=== PATIENT | female | born 1975 | race Caucasian/White ===

== ENCOUNTER → 2017-03-18 15:48 | Outpatient (CLI) | payer BC ==
[2014-12-09 14:41] VITALS: BMI 35.8
[~2017-03-18 15:48] MED LIST: NEURONTIN 300300 MG PO
== END | disposition home or self-care (01) ==
LOC: D.MRI 15:48
DX: M25.562 Pain in left knee (principal)

== ENCOUNTER → 2017-09-03 09:59 | Outpatient (CLI) | payer BC ==
[2014-12-09 14:41] VITALS: BMI 35.8
[~2017-09-03 09:59] MED LIST changes: +BUTALB-APAP-CA1 EACH PO; +DYAZIDE 37.5/251 CAP; +FERROUS SULFAT140 MG PO; +GABAPENTIN100 MG PO; +K-DUR20 MEQ PO; +NORCO 7.5/325 T1 TA1 PO; +PROTONIX40 MG PO; +VYVANSE70 MG PO; +XANAX0.5 MG PO
[2017-09-03 10:43] LABS: BASOPHILS 0.5 % (0-2); EOSINOPHILS 1.8 % (0-7); HEMATOCRIT 32.7 % (36.0-48.0); HEMOGLOBIN 9.9 g/dL (12-16); IMMATURE GRANULOCYTES 0.3 % (0-5); LYMPHOCYTES 26.7 % (15-50); MCH 24.8 pg (26.0-34.0); MCHC 30.3 g/dL (31.0-37.0); MEAN PLATELET VOLUME 11.5 fL (7.4-10.4); MONOCYTES 7.6 % (2-11); NEUTROPHILS 63.1 % (40-80); PLATELET COUNT 239 10x3/uL (130-400); RBC 3.99 10x6/uL (4.00-5.40); WBC 6.1 10x3/uL (4.8-10.8)
[2017-09-03 10:59] LABS: ANION GAP 15.2 mmol/L (8-16); CALCIUM 8.7 mg/dL (8.5-10.1); CARBON DIOXIDE 22.7 mmol/L (21.0-32.0); CREATININE - SERUM 0.9 mg/dL (0.6-1.3); POTASSIUM - SERUM 3.9 mmol/L (3.5-5.1)
[2017-09-03 11:24] LABS: INR 0.98 (0.85-1.17); PROTIME 12.6 SECONDS (11.6-15.0)
[2017-09-05 18:09] LABS: FOLATE (FOLIC ACID) - SERUM QNS ng/mL (())
[2017-09-11 09:17] LABS: FOLATE (FOLIC ACID) - SERUM 5.5 ng/mL (>3.0)
== END | disposition home or self-care (01) ==
LOC: D.LAB 09:59
PROVIDERS: Obstetrics & Gynecology
DX: D64.9 Anemia, unspecified (principal)

== ENCOUNTER 2017-09-16 07:24 | Day surgery (SDC) | payer BC ==
[~2017-09-16] VITALS: Ht 165.1 cm; Wt 94.3 kg
--- NOTE | ~2017-09-16 | OP ---
PATIENT NAME: ZACHARIAH GAXIOLA MEDICAL RECORD: [id number] :73 LOCATION:D.[facility]ERLY [facility] ADMISSION DATE: SURGEON: ZEFERINO GUAJARDO MD DATE OF OPERATION: 09/16/2017 PREOPERATIVE DIAGNOSIS: History of endometrial hyperplasia. POSTOPERATIVE DIAGNOSIS: History of endometrial hyperplasia. PROCEDURE: Hysteroscopy, D&C. SURGEON: Zeferino Guajardo MD ESTIMATED BLOOD LOSS: Minimal. INTRAVENOUS FLUIDS: Per anesthesia records. HYSTEROSCOPIC FLUID LOSS: Approximately 100 cc of 0.9 normal saline. FINDINGS: 1. Proliferative appearing endometrium. 2. Grossly normal cervix and external genitalia. SPECIMENS: Endometrial curettings. COMPLICATIONS: None apparent. PROCEDURE: The patient was taken to the operating room where general anesthesia was achieved without difficulty. The patient was then prepped and draped in normal sterile fashion in the dorsal lithotomy position in the [facility]. Following prep and drape, the bladder was drained of approximately 50 cc of clear yellow urine and a Graves speculum was placed into the vagina. At this point, the anterior lip of the cervix was grasped with a single tooth tenaculum. The patient was sounded to approximately 8 cm. Dilation was performed to approximately 6 mm and the hysteroscope was placed into the intrauterine cavity where survey of the cavity was performed. Following hysteroscopy, a #1 curette was used to curettage all 4 quadrants with minimal bleeding noted afterwards. The tenaculum was then removed as well as the speculum. The patient tolerated the procedure well and was transported to postanesthesia recovery stable without incident. TRANSINT:[id number] Voice Confirmation ID: [id number] DOCUMENT ID: [id number] ZEFERINO GUAJARDO MD at 1723 CC: [id number] DICTATION DATE: 09/28/17 0608 WEARING APPAREL PRESSER: 09/28/17 1113 [facility] 09/16/17 [place] [id number]
[2017-09-16 06:05] VITALS: BP 110/65; BMI 34.6
[2017-09-16 06:24] LABS: HCG URINE NEGATIVE (NEGATIVE)
[2017-09-16 06:29] VITALS: Ht 165.1 cm; Wt 94.3 kg
[2017-09-16 06:29] LABS: BASOPHILS 0.2 % (0-2); EOSINOPHILS 1.3 % (0-7); HEMATOCRIT 32.4 % (36.0-48.0); HEMOGLOBIN 10.1 g/dL (12-16); IMMATURE GRANULOCYTES 0.2 % (0-5); LYMPHOCYTES 26.4 % (15-50); MCH 26.7 pg (26.0-34.0); MCHC 31.2 g/dL (31.0-37.0); MCV 85.7 fL (80.0-100.0); MONOCYTES 6.3 % (2-11); NEUTROPHILS 65.6 % (40-80); RBC 3.78 10x6/uL (4.00-5.40); RDW 19.5 % (11.5-14.5); WBC 5.6 10x3/uL (4.8-10.8)
[2017-09-16 06:34] LABS: PLATELET COUNT 191 10x3/uL (130-400)
== END 2017-09-16 09:52 | disposition home or self-care (01) ==
LOC: D.OPS 07:24 → D.PAN 07:30 → D.OPS 07:30
PROVIDERS: Obstetrics & Gynecology
DX: N85.01 Benign endometrial hyperplasia (principal); F17.200 Nicotine dependence, unspecified, uncomplicated; K21.9 Gastro-esophageal reflux disease without esophagitis; R60.9 Edema, unspecified; F41.9 Anxiety disorder, unspecified; Z01.812 Encounter for preprocedural laboratory examination

== ENCOUNTER → 2017-09-26 15:51 | Outpatient (CLI) | payer BC ==
[2017-09-16 06:29] VITALS: BMI 34.6
[2017-09-26 16:20] LABS: HEMATOCRIT 34.6 % (36.0-48.0); HEMOGLOBIN 11.1 g/dL (12-16)
== END | disposition home or self-care (01) ==
LOC: D.LAB 15:51
PROVIDERS: Obstetrics & Gynecology
DX: Z01.419 Encounter for gynecological examination (general) (routine) without abnormal findings (principal)

== ENCOUNTER → 2017-11-07 14:27 | Outpatient (CLI) | payer BC ==
[2017-09-16 06:29] VITALS: BMI 34.6
[2017-11-07 15:30] LABS: BASOPHILS 0.5 % (0-2); EOSINOPHILS 1.4 % (0-7); HEMATOCRIT 37.8 % (36.0-48.0); HEMOGLOBIN 12.5 g/dL (12-16); IMMATURE GRANULOCYTES 0.2 % (0-5); LYMPHOCYTES 34.8 % (15-50); MCHC 33.1 g/dL (31.0-37.0); MCV 90.9 fL (80.0-100.0); MEAN PLATELET VOLUME 10.7 fL (7.4-10.4); MONOCYTES 7.2 % (2-11); NEUTROPHILS 55.9 % (40-80); PLATELET COUNT 242 10x3/uL (130-400); RBC 4.16 10x6/uL (4.00-5.40); RDW 16.3 % (11.5-14.5); WBC 5.8 10x3/uL (4.8-10.8)
[2017-11-07 15:53] LABS: % SATURATION 29 % (15-55); IRON 110 ug/dl (35-150); TOTAL IRON BIND CAPACITY 368 ug/dl (260-445); UNSAT IRON BIND CAPACITY 258 ug/dl (150-375)
[2017-11-07 16:06] LABS: ANION GAP 7.6 mmol/L (8-16); CALCIUM 8.7 mg/dL (8.5-10.1); CARBON DIOXIDE 32.1 mmol/L (21.0-32.0); CREATININE - SERUM 0.9 mg/dL (0.6-1.3); POTASSIUM - SERUM 3.7 mmol/L (3.5-5.1)
== END | disposition home or self-care (01) ==
LOC: D.LAB 14:27
PROVIDERS: Family Medicine
DX: D50.8 Other iron deficiency anemias (principal)

== ENCOUNTER 2017-12-11 08:00 | Outpatient (CLI) | payer BC ==
[~2017-12-11] VITALS: Ht 165.1 cm; Wt 98.4 kg
[~2017-12-11 08:00] MED LIST changes: -DYAZIDE 37.5/251 CAP; +DYAZIDE 37.5/251 CAP PO
[2017-12-12 06:46] VITALS: Ht 165.1 cm; Wt 98.4 kg
[2017-12-30] MEDS ORDERED: NORCO 7.5/325 T1 TA1 PO (09:33)
== END 2017-12-11 09:00 | disposition home or self-care (01) ==
LOC: D.MAMMO 08:00
DX: R92.8 Other abnormal and inconclusive findings on diagnostic imaging of breast (principal)

== ENCOUNTER 2017-12-12 05:30 | Inpatient (IN) | payer BC ==
[2017-12-11 14:05] LABS: BASOPHILS 0.3 % (0-2); EOSINOPHILS 1.1 % (0-7); HEMATOCRIT 37.6 % (36.0-48.0); HEMOGLOBIN 12.8 g/dL (12-16); IMMATURE GRANULOCYTES 0.1 % (0-5); LYMPHOCYTES 21.4 % (15-50); MCH 31.5 pg (26.0-34.0); MCV 92.6 fL (80.0-100.0); MONOCYTES 6.6 % (2-11); NEUTROPHILS 70.5 % (40-80); PLATELET COUNT 212 10x3/uL (130-400); RBC 4.06 10x6/uL (4.00-5.40); RDW 13.4 % (11.5-14.5); WBC 7.9 10x3/uL (4.8-10.8)
[2017-12-11 14:19] LABS: ANION GAP 9.8 mmol/L (8-16); CALCIUM 8.9 mg/dL (8.5-10.1); CARBON DIOXIDE 30.8 mmol/L (21.0-32.0); CREATININE - SERUM 0.9 mg/dL (0.6-1.3); POTASSIUM - SERUM 3.6 mmol/L (3.5-5.1)
[~2017-12-12] VITALS: Ht 165.1 cm; Wt 96.4 kg
[2017-12-12] VITALS (14 sets, daily range): BP systolic 99–134; BP diastolic 56–70; Ht 165.1 cm; Wt 96.4 kg
--- NOTE | ~2017-12-12 | OP ---
PATIENT NAME: ZACHARIAH GAXIOLA MEDICAL RECORD: [id number] :73 LOCATION:[facility] ADMISSION DATE:12/12/17 SURGEON: SEDRICK GUAJARDO MD DATE OF OPERATION: 12/12/2017 PREOPERATIVE DIAGNOSES: 1. Menorrhagia. 2. Pelvic pain. 3. Uterine fibroids. POSTOPERATIVE DIAGNOSES: 1. Menorrhagia. 2. Pelvic pain. 3. Uterine fibroids. PROCEDURES: Diagnostic laparoscopy, supracervical hysterectomy, and bilateral salpingectomy. SURGEON: Sedrick Guajardo MD ESTIMATED BLOOD LOSS: 300 cc. INTRAVENOUS FLUIDS: Per anesthesia records. ANESTHESIA: General endotracheal. COMPLICATIONS: None apparent. SPECIMENS: Uterus with partial cervix and bilateral fallopian tubes. FINDINGS: Large myomatous uterus, grossly normal appearing fallopian tubes and ovaries bilaterally. COMPLICATIONS: None apparent. DESCRIPTION OF THE PROCEDURE: The patient taken to the operating room where general anesthesia was achieved without difficulty. The patient was prepped and draped in normal sterile fashion in the dorsal lithotomy position in the [facility]. A Knight catheter had been placed and a sponge stick had been placed in the vagina for uterine elevation. At this point, a 5-mm incision was placed infraumbilically and the intraperitoneal space entered under the direct visualization of the laparoscope. Following entry into the intraperitoneal space, the introducer was removed and the patient was insufflated, opening pressure was found to be less than 10 mmHg. Survey of the abdomen and pelvis was performed. Due to the nature and size of the uterus, a laparoscopic approach would not be technically feasible, so at this point, the laparoscope was removed. The patient was desufflated and the trocar was removed. A Pfannenstiel skin incision was then made, extended downward to the underlying fat to the level of the fascia, which was then excised in the midline. Several areas of scar tissue were dissected away from the overlying skin. The fascia was then excised in midline and extended bilaterally using the Elena scissors. Superior and inferior aspects of the fascial incision were then grasped with Adi clamps times 2, tented upward, and sharply dissected from the underlying rectus muscle using the Bovie cautery and Elena scissors. The rectus muscle was OPERATIVE REPORT [id number] ZACHARIAH GAXIOLA identified in the midline and intraperitoneal entry was obtained by sharply entering the peritoneum with Metzenbaum scissors at the superior aspect of the incision. The peritoneal incision was then extended bilaterally using the Metzenbaum scissors. A Butte retractor was then placed into the incision. The small bowel was packed using 3 moist lap sponges. The uterus was grasped on its cornua with Adi clamps and tented upward through the incision. Extensive adhesive disease was also noted at the lower uterine segment/cervix and attention was then turned to the round ligaments, which were clamped, cut, and suture ligated using 0 Vicryl suture. A bladder flap was then created by excising the anterior leaf of the broad ligament across the lower uterine segment. Careful downward dissection of the bladder was performed. Skeletonization of the bilateral uterine vessels was obtained. A curved Brisa clamp was then placed across the uterine arteries. These were cut and then suture ligated using 0 Vicryl. Minimal bleeding was noted at that time. The cardinal ligaments were then clamped with straight Brisa clamps, cut, and suture ligated with 0 Vicryl and the uterus was amputated with a small portion of the cervix, a heavily invested in the bladder scarring was left behind. The endocervical canal was thoroughly cauterized. The cervical stump was oversewn using 0 Vicryl in an interrupted [id number] fashion with good hemostasis noted. Attention was then turned to the bilateral fallopian tubes, which were then carefully dissected away from the ovary and pelvic sidewall. The bilateral tubes and ovaries were identified and the fallopian tubes were dissected from the ovary and a curved Brisa clamp was placed across the mesosalpinx and not infundibulopelvic ligament and the fallopian tubes were then excised and the mesosalpinx oversewn with good hemostasis noted. The pelvis was then thoroughly irrigated and found to be hemostatic. The lap sponges were then removed. The counts were correct times 2 for needles, sponges, and instruments. The fascia was then repaired with 0 loop PDS and the skin repaired with davide. The patient tolerated procedure well, transferred to Postanesthesia Recovery stable without incident. TRANSINT:[id number] Voice Confirmation ID: [id number] DOCUMENT ID: [id number] SEDRICK GUAJARDO MD at 1304 CC: [id number] DICTATION DATE: 01/12/18 0650 PENCIL INSPECTOR: 01/12/18 1148 [place] 12/13/17 [facility] [address] [facility] [place] [id number]
--- NOTE | ~2017-12-12 | DS ---
PATIENT:ZACHARIAH GAXIOLA :73 MEDICAL RECORD: [id number] DISCHARGE SUMMARY ADMISSION DATE: 12/12/17 DISCHARGE DATE: 12/13/17 DATE OF ADMISSION: 12/12/2017 HOSPITAL COURSE: The patient with history of menorrhagia and fibroids refractory to medical therapy. The patient desires hysterectomy. The patient had had a remote history of simple hyperplasia where as repeat hysteroscopy revealed had resolved. PAST MEDICAL HISTORY: Significant for: 1. Lower extremity edema. 2. Chronic back pain. 3. Menorrhagia. 4. Gastroesophageal reflux disease. 5. Headaches. 6. Varicose veins. 7. Abdominal bloating. 8. The patient also reports history of anxiety. PAST SURGICAL HISTORY: Significant for cholecystectomy, and hysteroscopy, D&C. ALLERGIES: The patient reports no allergies. MEDICATIONS: Included Neurontin, Vyvanse, Xanax, iron, Protonix, Itmann, potassium, Fioricet and Dyazide. FAMILY HISTORY: The patient had a family history significant for a parent with diabetes and cancer, not otherwise specified. SOCIAL HISTORY: The patient reports a social history significant for being an everyday smoker. PHYSICAL EXAMINATION: VITAL SIGNS: On initial assessment, vital signs were found to be stable. The patient was normotensive and afebrile. LUNGS: Clear to auscultation. CARDIOVASCULAR: Regular rate and rhythm. ABDOMEN: Soft and appropriately tender. EXTREMITIES: Lower extremities were free of Homans sign. ASSESSMENT AND PLAN: 1. At that time, menorrhagia, uterine leiomyoma. 2. GERD. 3. Anxiety. 4. Lower extremity edema. Plan at that time for hysterectomy. Plan was to assess if laparoscopic supracervical hysterectomy could be performed. If unable, the patient was aware and wanted to proceed with total abdominal hysterectomy and bilateral salpingectomy. Risks and benefits were explained. The patient voiced understanding and consent. Operative report is as dictated. The patient did well overnight on postop day #0, tolerating IV Dilaudid and IV Toradol, clear DISCHARGE SUMMARY REPORT [id number] ZACHARIAH GAXIOLA liquid diet. Knight catheter was in place and draining freely with adequate urine output. Lower extremity with SCDs on and functioning appropriately. On the morning of postop day #1, status post diagnostic laparoscopy, supracervical hysterectomy and bilateral salpingectomy, the patient continued to do well. Vital signs remained stable. The patient was afebrile. Hemoglobin was stable. Incision was clean, dry and intact. The patient was advanced to p.o. pain meds and general diet. Knight was discontinued and ambulation was begun. The patient did exceptionally well on the morning of postop day #1 and desired discharge. The patient was discharged home with instructions to follow up for staple removal. TRANSINT:[id number] Voice Confirmation ID: [id number] DOCUMENT ID: [id number] ZEFERINO VALLE MD at 1304 CC: [id number] DICTATION DATE: 01/12/18 0654 CRYPTOANALYSIS TEACHER: 01/12/18 1628 [place] 12/13/17 [facility] [address] [place] [address]
[2017-12-12 20:38] LABS: BASOPHILS 0.1 % (0-2); EOSINOPHILS 0 % (0-7); HEMATOCRIT 32.7 % (36.0-48.0); IMMATURE GRANULOCYTES 0.3 % (0-5); LYMPHOCYTES 5.7 % (15-50); MCH 31.3 pg (26.0-34.0); MCHC 33.6 g/dL (31.0-37.0); MCV 92.9 fL (80.0-100.0); MONOCYTES 5.4 % (2-11); NEUTROPHILS 88.5 % (40-80); PLATELET COUNT 181 10x3/uL (130-400); RBC 3.52 10x6/uL (4.00-5.40); RDW 13.3 % (11.5-14.5)
[2017-12-12 20:56] LABS: WBC 10.8 10x3/uL (4.8-10.8)
[2017-12-12 20:59] LABS: ANION GAP 9.6 mmol/L (8-16); CALCIUM 7.9 mg/dL (8.5-10.1); CREATININE - SERUM 0.9 mg/dL (0.6-1.3); POTASSIUM - SERUM 3.6 mmol/L (3.5-5.1)
[2017-12-13 07:38] LABS: BASOPHILS 0.1 % (0-2); EOSINOPHILS 0.6 % (0-7); HEMATOCRIT 30.3 % (36.0-48.0); IMMATURE GRANULOCYTES 0.2 % (0-5); LYMPHOCYTES 17.5 % (15-50); MCH 31.1 pg (26.0-34.0); MCV 94.1 fL (80.0-100.0); MEAN PLATELET VOLUME 11.1 fL (7.4-10.4); MONOCYTES 9.3 % (2-11); NEUTROPHILS 72.3 % (40-80); PLATELET COUNT 169 10x3/uL (130-400); RBC 3.22 10x6/uL (4.00-5.40); RDW 13.6 % (11.5-14.5); WBC 8.7 10x3/uL (4.8-10.8)
[2017-12-13 07:44] VITALS: BP 103/50
[2017-12-13 08:12] LABS: ANION GAP 10.6 mmol/L (8-16); CALCIUM 7.6 mg/dL (8.5-10.1); CARBON DIOXIDE 28.6 mmol/L (21.0-32.0); CREATININE - SERUM 0.9 mg/dL (0.6-1.3); POTASSIUM - SERUM 3.2 mmol/L (3.5-5.1)
[2017-12-30] MEDS ORDERED: NORCO 7.5/325 T1 TA1 PO (09:33)
== END 2017-12-13 14:35 | disposition home or self-care (01) | DRG 743 ==
LOC: D.SDCHOLD 05:30 → D.LD 05:30 → D.SDCHOLD 07:30 → D.LD 11:15
PROVIDERS: Obstetrics & Gynecology
PROC: 0UT94ZL Resection of Uterus, Supracervical, Percutaneous Endoscopic Approach (ICD-10-PCS; principal; 2017-12-12 07:30)
PROC: 0UB74ZZ Excision of Bilateral Fallopian Tubes, Percutaneous Endoscopic Approach (ICD-10-PCS; 2017-12-12 07:30)
DX: D25.9 Leiomyoma of uterus, unspecified (principal); N92.0 Excessive and frequent menstruation with regular cycle; K21.9 Gastro-esophageal reflux disease without esophagitis; Z72.0 Tobacco use

== ENCOUNTER 2017-12-31 07:00 | Day surgery (SDC) | payer BC ==
[2017-12-30 10:06] LABS: HEMATOCRIT 35.9 % (36.0-48.0); HEMOGLOBIN 12.1 g/dL (12-16); MCH 31.4 pg (26.0-34.0); MCHC 33.7 g/dL (31.0-37.0); MCV 93.2 fL (80.0-100.0); MEAN PLATELET VOLUME 9.7 fL (7.4-10.4); RBC 3.85 10x6/uL (4.00-5.40); RDW 12.4 % (11.5-14.5)
[~2017-12-31] VITALS: Ht 165.1 cm; Wt 99.8 kg
--- NOTE | ~2017-12-31 | OP ---
PATIENT NAME: ZACHARIAH GAXIOLA MEDICAL RECORD: [id number] :73 LOCATION:[facility] ADMISSION DATE: SURGEON: JAKE NGUYEN MD DATE OF OPERATION: 12/31/2017 PREOPERATIVE DIAGNOSIS: Left carpal tunnel syndrome secondary to flexor retinaculum hypertrophy. POSTOPERATIVE DIAGNOSIS: Left carpal tunnel syndrome secondary to flexor retinaculum hypertrophy. PROCEDURE: Left carpal tunnel release. DESCRIPTION OF TECHNIQUE: After induction of general endotracheal anesthesia, the patient's left upper extremity was prepped and draped in usual sterile fashion, exsanguinated with an Roman wrap. A tourniquet was inflated to 250 mmHg. A longitudinal incision was made just to the ulnar side of the palmar crease up to the wrist crease, approximately 2 cm in length. Progressive dissection took place through in layers, finally through the transverse carpal ligament. The median nerve was completely freed proximal and distal to this point under direct vision. The tourniquet was deflated. Meticulous hemostasis was maintained throughout the wound. The wound was irrigated with copious amounts of Ancef irrigant solution. The skin was reapproximated with vertical mattress style suture. A sterile dressing was applied to the wound. The patient was awakened in good condition and taken to recovery. All counts were reported as correct. Estimated blood loss was minimal. TRANSINT:[id number] Voice Confirmation ID: [id number] DOCUMENT ID: [id number] JAKE NGUYEN MD at 2233 CC: [id number] DICTATION DATE: 01/06/18 1058 FEEDER TENDER: 01/06/18 1205 [facility] 12/31/17 [place] [id number]
[2017-12-31 07:30] VITALS: BP 102/75; Ht 165.1 cm; Wt 99.8 kg
== END 2017-12-31 14:00 ==
LOC: D.OPS 07:00
PROVIDERS: Anesthesiology
DX: G56.02 Carpal tunnel syndrome, left upper limb (principal); Z01.812 Encounter for preprocedural laboratory examination

== ENCOUNTER → 2018-01-21 15:24 | Outpatient (CLI) | payer BC ==
[2017-12-31 07:30] VITALS: BMI 36.6
== END | disposition home or self-care (01) ==
LOC: D.MRI 15:24
DX: R51 Headache (principal)

== ENCOUNTER → 2018-04-18 13:54 | Outpatient (CLI) | payer BC ==
[2017-12-31 07:30] VITALS: BMI 36.6
== END | disposition home or self-care (01) ==
LOC: D.MRI 13:54
DX: M54.12 Radiculopathy, cervical region (principal)

== ENCOUNTER → 2018-04-24 15:59 | Outpatient (CLI) | payer BC ==
[2017-12-31 07:30] VITALS: BMI 36.6
== END | disposition home or self-care (01) ==
LOC: D.MRI 15:59
DX: M47.26 Other spondylosis with radiculopathy, lumbar region (principal)

== ENCOUNTER → 2018-05-16 08:35 | Outpatient (CLI) | payer BC ==
[2017-12-31 07:30] VITALS: BMI 36.6
== END | disposition home or self-care (01) ==
LOC: D.MRI 08:35
DX: M25.512 Pain in left shoulder (principal)

== ENCOUNTER → 2018-06-04 | Emergency (ER) | payer BC ==
[~2018-06-04] VITALS: Ht 165.1 cm; Wt 97.7 kg
[~2018-06-04] MED LIST changes: +MECLIZINE HCL25 MG PO; +ZOFRAN ODT4 MG/UDTAB PO
[2018-06-04 06:54] VITALS: BP 122/78; Ht 165.1 cm; Wt 97.7 kg
[2018-06-04 07:26] LABS: BASOPHILS 0.1 % (0-2); EOSINOPHILS 0 % (0-7); HEMATOCRIT 44.1 % (36.0-48.0); HEMOGLOBIN 15.5 g/dL (12-16); IMMATURE GRANULOCYTES 0.6 % (0-5); LYMPHOCYTES 2.3 % (15-50); MCH 31.8 pg (26.0-34.0); MCHC 35.1 g/dL (31.0-37.0); MCV 90.6 fL (80.0-100.0); MEAN PLATELET VOLUME 10.6 fL (7.4-10.4); MONOCYTES 3.3 % (2-11); NEUTROPHILS 93.7 % (40-80); PLATELET COUNT 217 10x3/uL (130-400); RBC 4.87 10x6/uL (4.00-5.40); RDW 12.7 % (11.5-14.5); WBC 8.8 10x3/uL (4.8-10.8)
[2018-06-04 07:37] LABS: HCG SERUM NEGATIVE (NEGATIVE)
[2018-06-04 07:40] LABS: ALBUMIN 3.2 g/dL (3.4-5.0); ANION GAP 18.2 mmol/L (8-16); BILIRUBIN - TOTAL 0.71 mg/dL (0.2-1.3); CALCIUM 8.8 mg/dL (8.5-10.1); CARBON DIOXIDE 20.8 mmol/L (21.0-32.0); PROTEIN - SERUM 7.7 g/dL (6.4-8.2)
[2018-06-04 11:32] LABS: APPEARANCE CLEAR (CLEAR); BILIRUBIN NEGATIVE (NEGATIVE); COLOR YELLOW (YELLOW); GLUCOSE NEGATIVE (NEGATIVE); KETONE NEGATIVE (NEGATIVE); NITRITE NEGATIVE (NEGATIVE); PROTEIN NEGATIVE (NEGATIVE); SPECIFIC GRAVITY 1.015 (1.005-1.020); UROBILINOGEN NORMAL (NORMAL)
== END | disposition home or self-care (01) ==
LOC: D.ER 06:43
PROVIDERS: Family Medicine
DX: R11.10 Vomiting, unspecified (principal); R10.84 Generalized abdominal pain

== ENCOUNTER → 2018-06-16 09:35 | Outpatient (CLI) | payer BC ==
[2018-06-04 06:54] VITALS: BMI 35.8
== END | disposition home or self-care (01) ==
LOC: D.MRI 09:30
DX: M79.602 Pain in left arm (principal)

== ENCOUNTER → 2018-09-23 14:23 | Outpatient (CLI) | payer BC ==
[2018-06-04 06:54] VITALS: BMI 35.8
[2018-09-23 14:55] LABS: BASOPHILS 0.4 % (0-2); EOSINOPHILS 1.9 % (0-7); HEMATOCRIT 38.9 % (36.0-48.0); HEMOGLOBIN 13.1 g/dL (12-16); IMMATURE GRANULOCYTES 0.1 % (0-5); LYMPHOCYTES 23.6 % (15-50); MCH 31.5 pg (26.0-34.0); MCHC 33.7 g/dL (31.0-37.0); MCV 93.5 fL (80.0-100.0); MEAN PLATELET VOLUME 10.8 fL (7.4-10.4); MONOCYTES 7.2 % (2-11); NEUTROPHILS 66.8 % (40-80); PLATELET COUNT 219 10x3/uL (130-400); RBC 4.16 10x6/uL (4.00-5.40); RDW 12.5 % (11.5-14.5); WBC 7.5 10x3/uL (4.8-10.8)
[2018-09-23 15:21] LABS: ALBUMIN 3.3 g/dL (3.4-5.0); ANION GAP 8.6 mmol/L (8-16); BILIRUBIN - TOTAL 0.26 mg/dL (0.2-1.3); CALCIUM 8.5 mg/dL (8.5-10.1); POTASSIUM - SERUM 3.6 mmol/L (3.5-5.1); PROTEIN - SERUM 7.3 g/dL (6.4-8.2); T4 THYROXINE 8.1 ug/dL (4.7-13.3); THYROID STIMULATING HORMONE 1.46 uIU/mL (0.36-3.74); URIC ACID 3.8 mg/dL (2.6-7.2)
[2018-09-23 16:07] LABS: ERYTHROCYTE SEDIMENTATION RATE 10 mm/hr (0-20)
[2018-09-24 15:14] LABS: ANA REFLEX - DIRECT Negative (Negative)
== END | disposition home or self-care (01) ==
LOC: D.LAB 14:23
PROVIDERS: ATTEND Emergency Medicine
DX: R53.83 Other fatigue (principal)

== ENCOUNTER → 2018-11-25 13:52 | Outpatient (CLI) | payer BC ==
[2018-06-04 06:54] VITALS: BMI 35.8
== END | disposition home or self-care (01) ==
LOC: D.MRI 13:52
PROVIDERS: ATTEND Orthopaedic Surgery
DX: M25.562 Pain in left knee (principal)

== ENCOUNTER → 2019-03-18 15:26 | Outpatient (CLI) | payer BC ==
[2018-06-04 06:54] VITALS: BMI 35.8
== END | disposition home or self-care (01) ==
LOC: D.MRI 15:26
PROVIDERS: ATTEND Orthopaedic Surgery
DX: M23.331 Other meniscus derangements, other medial meniscus, right knee (principal)

== ENCOUNTER → 2019-04-23 12:18 | Outpatient (CLI) | payer BC ==
[2018-06-04 06:54] VITALS: BMI 35.8
[2019-04-23 16:04] LABS: C-REACTIVE PROTEIN < 0.2 mg/dL (0.0-0.9)
[2019-04-23 16:18] LABS: ERYTHROCYTE SEDIMENTATION RATE 13 mm/hr (0-20)
== END | disposition home or self-care (01) ==
LOC: D.LAB 12:18
PROVIDERS: ATTEND Orthopaedic Surgery Adult Reconstructive Orthopaedic Surgery
DX: M17.0 Bilateral primary osteoarthritis of knee (principal); Z79.891 Long term (current) use of opiate analgesic; Z51.81 Encounter for therapeutic drug level monitoring; Z68.38 Body mass index [BMI] 38.0-38.9, adult

== ENCOUNTER 2019-05-05 09:02 | Outpatient (CLI) | payer BC ==
[~2019-05-05] VITALS: Ht 165.1 cm; Wt 97.7 kg
[2019-05-05 10:53] VITALS: BP 119/78; Ht 165.1 cm; Wt 97.7 kg
--- NOTE | 2019-05-05 11:06 | NUR ---
1055 PT STATES SHE HAS NOT HAD ANY REACTIONS TO ROCEPHIN IN THE PAST. NO ITCHING OR HIVES AFTER INJECTION. PT WANTS TO RETURN TO WORK HERE AT [employer].
== END 2019-05-05 10:58 | disposition home or self-care (01) ==
LOC: D.OPS 09:02
PROVIDERS: ATTEND Emergency Medicine
DX: J40 Bronchitis, not specified as acute or chronic (principal)

== ENCOUNTER → 2019-09-18 09:06 | Outpatient (CLI) | payer BC ==
[2019-05-05 10:53] VITALS: BMI 35.8
== END | disposition home or self-care (01) ==
LOC: D.ECHO 09:06
PROVIDERS: ATTEND Internal Medicine Cardiovascular Disease
DX: Z01.818 Encounter for other preprocedural examination (principal)

== ENCOUNTER → 2019-12-02 13:21 | Outpatient (CLI) | payer BC ==
[2019-05-05 10:53] VITALS: BMI 35.8
[2019-12-02 14:24] LABS: ANION GAP 11.3 mmol/L (8-16); CALCIUM 8.7 mg/dL (8.5-10.1); CARBON DIOXIDE 28.5 mmol/L (21.0-32.0); CREATININE - SERUM 0.9 mg/dL (0.6-1.3); POTASSIUM - SERUM 3.8 mmol/L (3.5-5.1)
== END | disposition home or self-care (01) ==
LOC: D.LAB 11:06
PROVIDERS: ATTEND Surgery
DX: E87.6 Hypokalemia (principal)

== ENCOUNTER → 2020-11-10 14:44 | Outpatient (CLI) | payer BC ==
[2019-05-05 10:53] VITALS: BMI 35.8
[2020-11-10 15:43] LABS: BASOPHILS 0.4 % (0-2); EOSINOPHILS 1.4 % (0-7); HEMATOCRIT 37.2 % (36.0-48.0); HEMOGLOBIN 12.5 g/dL (12-16); LYMPHOCYTES 28.2 % (15-50); MCH 32.3 pg (26.0-34.0); MCHC 33.7 g/dL (31.0-37.0); MCV 95.8 fL (80.0-100.0); MEAN PLATELET VOLUME 9.5 fL (7.4-10.4); MONOCYTES 8.7 % (2-11); NEUTROPHILS 61.3 % (40-80); RBC 3.89 10x6/uL (4.00-5.40); RDW 12.5 % (11.5-14.5); WBC 7.4 10x3/uL (4.8-10.8)
[2020-11-10 16:06] LABS: PLATELET COUNT 234 10x3/uL (130-400)
[2020-11-10 16:30] LABS: ALBUMIN 3.6 g/dL (3.4-5.0); ALKALINE PHOSPHATASE 71 U/L (30-120); ALT (SGPT) 58 U/L (10-68); BILIRUBIN - TOTAL 0.26 mg/dL (0.2-1.3); CALC OSMOLALITY 282 mosm/kg (275-300); CALCIUM 8.7 mg/dL (8.5-10.1); CARBON DIOXIDE 27.6 mmol/L (21.0-32.0); CHLORIDE - SERUM 106 mmol/L (98-107); CHOL - HDL RATIO 1.7 ratio (2.3-4.1); CHOLESTEROL, TOTAL 144 mg/dL (0-200); CREATININE - SERUM 0.8 mg/dL (0.6-1.3); GLUCOSE 85 mg/dL (74-106); HDL CHOLESTEROL 87 mg/dL (32-96); LDL CHOLESTEROL 50 mg/dL (0-100); LDL-HDL RATIO 0.6 ratio (1.5-3.5); PROTEIN - SERUM 7.2 g/dL (6.4-8.2); SODIUM 141 mmol/L (136-145); T4 THYROXIN - FREE 0.76 ng/dL (0.76-1.46); T4 THYROXINE 5.2 ug/dL (4.7-13.3); THYROID STIMULATING HORMONE 1.45 uIU/mL (0.36-3.74); TRIGLYCERIDE 38 mg/dL (30-200); UREA NITROGEN 22 mg/dL (7-18); eGFR NON AFRICAN AMERICAN 82 mL/min (90-120)
== END | disposition home or self-care (01) ==
LOC: D.LAB 14:44
PROVIDERS: ATTEND Surgery
DX: E55.9 Vitamin D deficiency, unspecified (principal); E03.9 Hypothyroidism, unspecified; E03.4 Atrophy of thyroid (acquired); R53.83 Other fatigue; E51.9 Thiamine deficiency, unspecified; D51.9 Vitamin B12 deficiency anemia, unspecified; R68.89 Other general symptoms and signs; E87.8 Other disorders of electrolyte and fluid balance, not elsewhere classified; E78.5 Hyperlipidemia, unspecified; E78.00 Pure hypercholesterolemia, unspecified; D64.9 Anemia, unspecified; E11.8 Type 2 diabetes mellitus with unspecified complications